=== PATIENT | female | born 1950 | race Caucasian/White ===

== ENCOUNTER 2019-08-18 18:54 | Inpatient (IN) | payer OTHER ==
[~2019-08-18] VITALS: Ht 170.2 cm; Wt 104.5 kg
[2019-08-18 19:19] VITALS: Ht 170.2 cm; Wt 104.5 kg
[2019-08-18 22:08] LABS: BASOPHIL % 0.6 % (0-2); PLATELET COUNT 270 x10^3mcL (130-400)
[2019-08-18 22:09] LABS: CALCIUM 9.6 mg/dL (8.5-10.1); CREATININE SERUM 1.2 mg/dL (0.6-1.0); RED CELL DISTRIBUTION WIDTH 15.3 % (11.5-14.5)
[2019-08-18 22:14] LABS: microscopic required? YES; urine erythrocyte 3+ (NEGATIVE)
[2019-08-18 22:14] LABS: ALBUMIN 3.5 g/dL (3.4-5.0); BILIRUBIN TOTAL 0.7 mg/dL (0.20-1.00); TOTAL PROTEIN, SERUM 7.9 g/dL (6.4-8.2)
[2019-08-19] MEDS ORDERED: LYRICA75 M1 PO (00:05)
[2019-08-19] MEDS ORDERED: PANTOPRAZOLE SO40 M1 PO (00:05)
[2019-08-19] MEDS ORDERED: DULOXETINE HYDR60 MG PO (00:05)
[2019-08-19] MEDS ORDERED: SIMVASTATIN40 M1 PO (00:05)
[2019-08-19] MEDS ORDERED: TRAZODONE50 M1 PO (00:05)
[2019-08-19] MEDS ORDERED: ULTRAM50 MG PO (00:06)
[2019-08-19] MEDS ORDERED: NOR10 PO (00:06)
[2019-08-19] MEDS ORDERED: ACETAMIN-CODE12.5 ML PO (00:07)
[2019-08-19] MEDS ORDERED: IMITREX100 MG PO (00:08)
[2019-08-19] MEDS ORDERED: CLONAZEPAM1 MG PO (00:08)
[2019-08-19 00:09] LABS: MAGNESIUM 1.8 mg/dL (1.8-2.4); PHOSPHOROUS 3.7 mg/dL (2.5-4.9)
[2019-08-19 00:15] LABS: CHOLESTEROL/HDL RATIO 7.5
[2019-08-19 00:57] VITALS: BP 140/79
[2019-08-19 02:07] LABS: FREE T4 1.2 ng/dL (0.76-1.46); FREE THYROXINE INDEX 2.6 ug/dL (1.4-4.5); T4(THYROXINE) 9.1 ug/dL (4.7-13.3)
[2019-08-19 03:46] LABS: T3 TOTAL 0.97 ng/mL
[2019-08-19 05:42] LABS: AMPHETAMINE QUAL UR NONE DETECTED (See below)
[2019-08-19 05:52] VITALS: BP 128/62
[2019-08-19 06:35] LABS: BASOPHIL % 0.9 % (0-2); PLATELET COUNT 257 x10^3mcL (130-400)
[2019-08-19 06:45] LABS: BILIRUBIN TOTAL 0.57 mg/dL (0.20-1.00); CARBON DIOXIDE 22.2 mmol/L (21-32); CREATININE SERUM 1.1 mg/dL (0.6-1.0); MAGNESIUM 1.8 mg/dL (1.8-2.4); PHOSPHOROUS 3.7 mg/dL (2.5-4.9); POTASSIUM SERUM 3.9 mmol/L (3.5-5.1); TOTAL PROTEIN, SERUM 7.4 g/dL (6.4-8.2)
[2019-08-19 06:51] LABS: ALBUMIN 3.1 g/dL (3.4-5.0)
[2019-08-19 08:58] VITALS: BP 108/54
[2019-08-19 12:44] VITALS: BP 143/66
[2019-08-19 17:00] VITALS: BP 126/51
[2019-08-19 21:07] VITALS: BP 141/76
[2019-08-20 05:39] VITALS: BP 116/52
[2019-08-20 07:28] LABS: BASOPHIL % 0.7 % (0-2); PLATELET COUNT 251 x10^3mcL (130-400)
[2019-08-20 07:59] LABS: BILIRUBIN TOTAL 0.6 mg/dL (0.20-1.00); CALCIUM 8.5 mg/dL (8.5-10.1); CARBON DIOXIDE 25.2 mmol/L (21-32); MAGNESIUM 1.7 mg/dL (1.8-2.4); PHOSPHOROUS 3.6 mg/dL (2.5-4.9); POTASSIUM SERUM 3.8 mmol/L (3.5-5.1); TOTAL PROTEIN, SERUM 6.8 g/dL (6.4-8.2)
[2019-08-20 08:12] LABS: ALBUMIN 2.8 g/dL (3.4-5.0)
[2019-08-20 08:30] VITALS: BP 127/64
[2019-08-20 12:01] VITALS: BP 141/86
[2019-08-20 16:32] VITALS: BP 150/80
[2019-08-20 21:28] VITALS: BP 134/71
[2019-08-21 05:31] VITALS: BP 132/58
[2019-08-21 07:02] LABS: BASOPHIL % 0.6 % (0-2); PLATELET COUNT 273 x10^3mcL (130-400)
[2019-08-21 07:19] LABS: RED CELL DISTRIBUTION WIDTH 14.7 % (11.5-14.5)
[2019-08-21 07:29] LABS: CALCIUM 9.4 mg/dL (8.5-10.1); CARBON DIOXIDE 22.3 mmol/L (21-32); CHLORIDE SERUM 102 mmol/L (98-107); CREATININE SERUM 0.8 mg/dL (0.6-1.0); GFR1 > 60 mL/min; GLUCOSE SERUM 78 mg/dL (74-106); POTASSIUM SERUM 3.6 mmol/L (3.5-5.1); SODIUM SERUM 136 mmol/L (136-145)
[2019-08-21 08:42] VITALS: BP 140/60
[2019-08-21 11:55] VITALS: BP 134/62
== END 2019-08-21 17:55 | DRG 280 ==
LOC: ED 18:54 → DU 23:18
PROVIDERS: Emergency Medicine; Internal Medicine; ADMIT Internal Medicine
DX: I21.A1 Myocardial infarction type 2 (principal); N17.0 Acute kidney failure with tubular necrosis; N39.0 Urinary tract infection, site not specified; M62.82 Rhabdomyolysis; Z68.1 Body mass index [BMI] 19.9 or less, adult; R31.9 Hematuria, unspecified; E86.0 Dehydration; R29.6 Repeated falls; G62.9 Polyneuropathy, unspecified; M47.9 Spondylosis, unspecified; K21.9 Gastro-esophageal reflux disease without esophagitis; I35.0 Nonrheumatic aortic (valve) stenosis; I10 Essential (primary) hypertension; F32.9 Major depressive disorder, single episode, unspecified; F41.8 Other specified anxiety disorders; E78.5 Hyperlipidemia, unspecified; Z79.82 Long term (current) use of aspirin
CPT/HCPCS: 83880; 84439; 90658; 97116-GP; 97530-GP; G0378; G0480; J0696; J7030; Q0092

== ENCOUNTER 2020-04-04 16:31 | Inpatient (IN) | payer OTHER ==
[~2020-04-04] VITALS: Ht 170.2 cm; Wt 82.6 kg
[~2020-04-04 16:31] MED LIST: ACETAMIN-CODE12.5 ML PO; CLONAZEPAM1 MG PO; DULOXETINE HYDR60 MG PO; IMITREX100 MG PO; LYRICA75 M1 PO; NOR10 PO; PANTOPRAZOLE SO40 M1 PO; SIMVASTATIN40 M1 PO; TRAZODONE50 M1 PO; ULTRAM50 MG PO
[2020-04-04 16:50] VITALS: Ht 170.2 cm; Wt 82.6 kg
--- NOTE | 2020-04-04 17:30 | NUR ---
REC'D A 70/F IN RM 9 BIBA FROM [facility] WITH C/O HYPOTENSION X 1 DAY. ADMITTED TO [facility] FOR CDIFFF. PER MEDIC, PT IS USUALLY ALTERED HOWEVER, MORE ALTERED TODAY. PT CONTINUES TO YELL " YOU'RE TRYING TO KILL ME" PT ALERT AND ORIENTED TO NAME, AND , RESP EU, BANDAGE NOTED TO SACRUM. PT IN NO ACUTE DISTRESS.
[2020-04-04 17:47] LABS: PLATELET COUNT 345 x10^3mcL (130-400)
[2020-04-04 17:49] LABS: RED CELL DISTRIBUTION WIDTH 20.8 % (11.5-14.5)
[2020-04-04 18:08] LABS: microscopic required? YES; urine erythrocyte 3+ (NEGATIVE)
--- NOTE | 2020-04-04 18:29 | NUR ---
BP: 90/45 AFTER 1 L NS.
[2020-04-04 18:39] LABS: LACTIC DEHYDROGENASE (LDH) 10 U/L (100-190)
[2020-04-04] MEDS ORDERED: ACIDOPHILUS1 EAC2 (18:41)
[2020-04-04] MEDS ORDERED: DULCOLAX10 M1 (18:42)
[2020-04-04] MEDS ORDERED: VITAMIN C500 M6 (18:42)
[2020-04-04] MEDS ORDERED: FAMOTIDINE20 M1 (18:43)
[2020-04-04] MEDS ORDERED: FERROUSAL325 MG (18:43)
[2020-04-04] MEDS ORDERED: FLEET ENEMA135 ML (18:43)
[2020-04-04] MEDS ORDERED: PROA (18:44)
[2020-04-04] MEDS ORDERED: GOOD NEIGH1200 MG/15 (18:44)
[2020-04-04] MEDS ORDERED: NORCO1 TA2 (18:44)
[2020-04-04] MEDS ORDERED: KLOR-CON M1010 MEQ (18:45)
[2020-04-04] MEDS ORDERED: SIMVASTATIN5 M2 (18:45)
[2020-04-04] MEDS ORDERED: VIMPAT100 M1 (18:45)
[2020-04-04] MEDS ORDERED: ZOF4 (18:46)
[2020-04-04] MEDS ORDERED: ZOL100 (18:46)
[2020-04-04] MEDS ORDERED: VANCOMYCIN HYD125 MG (18:47)
[2020-04-04 18:51] LABS: AMPHETAMINE QUAL UR NONE DETECTED (See below)
[2020-04-04 19:01] LABS: C REACTIVE PROTEIN 5.5 mg/dL (<=0.9); CHOLESTEROL 171 mg/dL (<200); LIPASE 71 IU/L (73-393); MAGNESIUM 1.6 mg/dL (1.8-2.4)
--- NOTE | 2020-04-04 19:06 | NUR ---
INITIATED ROCEPHIN @ 100ML/HR. PLEASE SEE EMAR.
--- NOTE | 2020-04-04 19:07 | NUR ---
3L NS BOLUS COMPLETED. BP: 95/43 (57)
[2020-04-04 19:16] LABS: BAND NEUTROPHIL 1 % (0-10); METAMYELOCTE 3 % (0-2); MONOCYTE 9 % (0-7); SEGMENTED NEUTROPHILS 62 % (37-75)
[2020-04-04 19:18] LABS: PLATELET MORPHOLOGY LARGE PLATELET SEEN; rbc morphology (normal/abnorm) ABNORMAL (NORMAL)
--- NOTE | 2020-04-04 19:18 | NUR ---
RECEIVED REPORT FROM JESUS MANUEL BALLESTEROS. PT RESTING ON GURNEY IN NAD. IV RUNNING WITH NO COMPLICATIONS. CM AND [address]. PT SLEEPING BUT EASILY AROUSABLE. WILL CONTINUE TO MONITOR.
[2020-04-04 19:29] LABS: CALCIUM 8.4 mg/dL (8.5-10.1); CARBON DIOXIDE 20.3 mmol/L (21-32); CHLORIDE SERUM 95 mmol/L (98-107); CREATININE SERUM 2.3 mg/dL (0.6-1.0); GFR1 22 mL/min; GLUCOSE SERUM 83 mg/dL (74-106); POTASSIUM SERUM 3.6 mmol/L (3.5-5.1); SODIUM SERUM 132 mmol/L (136-145)
[2020-04-04 19:34] LABS: ALT/SGPT 34 U/L (14-59); AST/SGOT 155 U/L (15-37); BILIRUBIN TOTAL 2.5 mg/dL (0.20-1.00); TOTAL PROTEIN, SERUM 6.2 g/dL (6.4-8.2)
--- NOTE | 2020-04-04 19:36 | NUR ---
PT TAKEN TO CT VIA ROCTAVIO.
[2020-04-04 19:37] LABS: ALBUMIN 1.9 g/dL (3.4-5.0); HDL CHOLESTEROL 4 mg/dL (40-60); T4(THYROXINE) 1.3 ug/dL (4.7-13.3)
--- NOTE | 2020-04-04 20:19 | NUR ---
PT RESTING ON GURNEY IN NAD. PT ABLE TO STATE NAME, , AND ABLE TO STATE SHES AT [facility]. PT UNABLE TO STATE SITUATION AND STATES "[id number]" WHEN ASKED WHAT YEAR IT IS. PT RESTING IN POSITION OF COMFORT. LIGHTS TURNED OFF FOR COMFORT. ATTEMPTED TO REPOSITION PT AND PATIENT RAISED VOICE AND STATES "NO, NO, NO". CM AND [address] WILL CONTINUE TO MONITOR.
--- NOTE | 2020-04-04 21:02 | NUR ---
PT NOTED HAVING RUN OF VTACH ON MONITOR. MD MCLEOD CALLED AND MADE AWARE. PER MD TIRADO REPEAT EKG AT THIS TIME. PT DENIES ANY CHEST PAIN AND IS SPEAKING CLEARLY. PT BREATHING EVEN AND UNLABORED AND IS NAD. REPEAT EKG COMPLETED BY MYSELF.
--- NOTE | 2020-04-04 21:11 | NUR ---
MD MCLEOD MADE AWARE OF EKG RESULTS. PER CONTINUE CM AT THIS. PT REMAINS IN CM AND [address] PT RESTING IN NAD. WILL CONTINUE TO MONITOR.
[2020-04-04 21:13] LABS: ALKALINE PHOSPHATASE 1486 U/L (46-116)
--- NOTE | 2020-04-04 21:16 | NUR ---
PT SON ISSA ANDERSON CALLED TO CHECK ON MOTHER. PER ISSA REQUESTING INFORMATION IF STATUS CHANGES ON PATIENT. PER ISSA BEST CONTACT NUMBER IS [phone].
--- NOTE | 2020-04-04 21:17 | NUR ---
LAB AT BEDSIDE.
--- NOTE | 2020-04-04 21:46 | NUR ---
MD MCLEOD AT BEDSIDE SPEAKING WITH PT ABOUT PLAN OF CARE. DUE TO PTS SYSTOLIC BP OF <90, WE WILL CONTINUE TO MONITOR PT IN ED. PER MD MCLEOD PTS SYSTOLICN BP MUST BE ABOVE 90 SYSTOLIC FOR 2 HOURS BEFORE SHE WILL ACCEPT THE PATIENT ON TELE FLOOR. IF BP DOES NOT STAY ABOVE 90 SYSTOLIC WE WILL CONSIDER ADMITTING PT TO ICU. NO FURTHER ORDERS AT THIS TIME. WILL CONTINUE TO MONITOR.
--- NOTE | 2020-04-04 22:11 | NUR ---
SPOKE TO MD MCLEOD REGARDING PTS BP STILL UNDER 90 SYSTOLIC. PER MD MCLEOD START LEVOPHED AT THIS TIME AND PT IS BEING CHANGED TO AN ICU ADMISSION. PER MD MCLEOD SHE WILL COME TO PLACE CENTRAL LINE FOR PT.
--- NOTE | 2020-04-04 22:15 | NUR ---
MD MANJARREZ PROVIDED WITH PTS SON ISSA CONTACT INFORMATION TO UPDATE PTS FAMILY OF PLAN OF CARE. MD MANJARREZ STATED SHE WOULD CONTACT PTS FAMILY MEMBER TO GIVE HIM AN UPDATE FOR PLAN OF CARE.
--- NOTE | 2020-04-04 22:30 | NUR ---
LEVOPHED INCREASED TO 4MCG/MIN FOR BP 84/43 MAP 52
[2020-04-04 22:34] LABS: CHOLESTEROL/HDL RATIO 21.1
--- NOTE | 2020-04-04 22:38 | NUR ---
LEVOPHED INCREASED TO 6MCG/MIN FOR AMAURY 91/48 MAP 56
--- NOTE | 2020-04-04 22:42 | NUR ---
LEVOPHED INCREASED TO 8 MCG/MIN FOR BP 96/48 MAP 63.
--- NOTE | 2020-04-04 22:46 | NUR ---
LEVOPHED INCREASED TO 10 MCG/MIN FOR BP 94/48 MAP 60
--- NOTE | 2020-04-04 22:51 | NUR ---
LEVOPHED REMAINS AT 10 MCG/MIN FOR BP 100/55 MAP 65. PT RESTING ON GURNEY IN NAD. PT BREATHING EVEN AND UNLABORED. FULL CM AND [address]PT SPEAKING CLEARLY. LIGHTS REMAIN OFF FOR PT COMFORT. WILL CONTINUE TO MONITOR.
--- NOTE | 2020-04-04 23:14 | NUR ---
LEVOPHED INCREASED TO 12 MCG/MIN FOR BP 102/48 MAP 62
--- NOTE | 2020-04-04 23:29 | NUR ---
PT NOTED HAVING RUNS OF VTACH ON CM. EKG COMPLETED. ATTEMPTED TO CALL RESIDENT. NO ANSWER. FULL CM REMAINS IN PLACE. PT DENIES ANY CHEST PAIN OR DIFFICULTY BREATHING. PT SPEAKING CLEARLY. PT REMAINS ON LEVOPHED 12 M MCG/MIN. BP 106/55 MAP 70.
--- NOTE | 2020-04-04 23:34 | NUR ---
MD MCLEOD AT BEDSIDE, PER MD CONTINUE TO MONITOR ON UTILITY PLANT OPERATIVE AT THIS TIME. MD AWARE OF PTS RUNS OF VTACH ON CM. NO FURTHER ORDERS AT THIS TIME.
--- NOTE | 2020-04-04 23:44 | NUR ---
PER MD MCLEOD KEEP PTS MAP ABOVE 60 WITH LEVOPHED TITRATION. PT CURRENT BP NOTED 93/52 MAP 64. PT LEVOPHED DRIP REMAINS AT 12 MCG/MIN. FULL CM AND [address] PT REMAINS EASILY AROUSABLE AND IS IN NAD.
--- NOTE | 2020-04-05 00:37 | NUR ---
CENTRAL LINE CONSENT SIGNED BY MYSELF, FAVIAN RUBIO, AND MD LEVI. CONSENT PLACED IN PT CHART.
--- NOTE | 2020-04-05 01:12 | NUR ---
MD CLEANING, MD AYALA, AND AGNES AT BEDSIDE FOR CENTRAL LINE PLACEMENT
--- NOTE | 2020-04-05 01:58 | NUR ---
CENTRAL LINE PLACED AT THIS TIME AND SECURED. AWAITING PLACEMENT VERIFICATION. PT RESTING ON GURNEY IN NAD. PT APPEARS TO BE SLEEPING BUT IS EASILY AROUSABLE. FULL CM AND [address] PT BREATHING EVEN AND UNLABORED. WILL CONTINUE TO MONITOR.
--- NOTE | 2020-04-05 02:12 | NUR ---
LEVOPHED TITRATED UP TO 14 MCG/MIN PER PROTOCOL
--- NOTE | 2020-04-05 02:20 | NUR ---
XRAY AT BEDSIDE FOR CENTRAL LINE VERIFICATION.
--- NOTE | 2020-04-05 02:52 | NUR ---
INCREASED LEVOPHED TO 16MCG/MIN DUE TO BP 88/45 WITH MAP 59
--- NOTE | 2020-04-05 02:54 | NUR ---
PT IS SLEEPING IN POSITION OF COMFORT,NO ACUTE DSITRESS NOTED. REMAINS ON FULL INSPECTOR SALVAGE AND IN VIEW FROM NURSES STATION.
--- NOTE | 2020-04-05 03:00 | NUR ---
LEVOPHED MAINTAINED AT 16 MCG/MIN FOR BP 94/54 MAP 63.
--- NOTE | 2020-04-05 03:09 | NUR ---
LEVOPHED MAINTAINED AT 16 MCG/MIN. PTS BP NOTED 96/45 MAP 62. PT SLEEPING IN POSITION OF COMFORT, BREATHING EVEN AND UNLABORED. WILL CONTINUE TO MONITOR.
--- NOTE | 2020-04-05 03:16 | NUR ---
PER MD MCLEOD CENTRAL LINE PLACEMENT HAS BEEN VERIFIED AND CENTRAL LINE IS OKAY TO USE AT THIS TIME.
--- NOTE | 2020-04-05 03:20 | NUR ---
LEVOPHED SWITCHED TO CENTRAL LINE BUT REMAINS AT 16 MCG/MIN. CENTRAL LINE FLUSHES WITH NO COMPLICATIONS, +BLOOD RETURN NOTED. CM AND [address] WILL CONTINUE TO MONITOR.
--- NOTE | 2020-04-05 04:18 | NUR ---
PT LEVOPHED INCREASED TO 18 MCG/MIN FOR BP 89/36 MAP 54.
--- NOTE | 2020-04-05 04:24 | NUR ---
PT LEVOPHED INCREASED TO 20 MCG/MIN FOR BP 95/42 MAP 56.
--- NOTE | 2020-04-05 04:30 | NUR ---
LEVOPHED REMAINS AT 20 MC/MIN TO RIGHT CENTRAL LINE. PT SLEEPING ON GURNEY IN NAD. PT BREATHING EVEN AND UNLABORED. LIGHTS REMAIN OFF FOR PT COMFORT. FULL CM AND [address] ABLE TO VISUALIZE PT FROM NURSING STATION. WILL CONTINUE TO MONITOR.
--- NOTE | 2020-04-05 05:04 | NUR ---
LEVOPHED INCREASED TO 22 MCG/MIN FOR BP 94/38 MAP 57
--- NOTE | 2020-04-05 05:11 | NUR ---
LEVOPHED MAINTAINED AT 22 MCG/MIN FOR BP 94/40 MAP 64
--- NOTE | 2020-04-05 06:05 | NUR ---
PT SLEEPING ON GURNEY IN NAD. PT EASILY AROUSABLE. PT BREATHING EVEN AND UNLABORED. FULL CM AND [address] LEVOPHED MAINTAINED AT 22 MCG/MIN FOR BP 100/41 MAP 60. LIGHTS REMAIN OFF FOR PT COMFORT AND PT REMAINS IN [place] POSITION. WILL CONTINUE TO MONITOR.
--- NOTE | 2020-04-05 06:33 | NUR ---
LEVOPHED INCREASED TO 24 MCG/MIN FOR BP 96/47 MAP 58.
--- NOTE | 2020-04-05 06:41 | NUR ---
LEVOPHED REMAINS AT 24 MCG/MIN FOR BP 106/51 MAP 61
--- NOTE | 2020-04-05 07:04 | NUR ---
LEVOPHED INCREASED TO 26 MCG/MIN FOR BP 97/38 MAP 58
--- NOTE | 2020-04-05 07:13 | NUR ---
LEVOPHED REMAINS AT 26 MCG/MIN FOR BP 94/50 MAP 60
--- NOTE | 2020-04-05 07:29 | NUR ---
RECIEVED REPORT FROM EVELYN BALLESTEROS. WILL ASSUME FURTHER CARE OF PT AT THIS TIME. PT NOTED SLEEPING IN ER [facility] AT THIS TIME. VSS, NO AD NOTED. WILL CONTINUE TO MONITOR. PT IN CLOSE VIEW OF NURSES STATION, SIDE RAILS UP X2 FOR SAFETY.
--- NOTE | 2020-04-05 07:31 | NUR ---
REPORT GIVEN TO YELITZA BALLESTEROS, YELITZA RN TO ASSUME CARE OF PT AT THIS TIME.
--- NOTE | 2020-04-05 08:20 | NUR ---
PT NOTED PULLING IV FROM R FOREARM AT THIS TIME.
--- NOTE | 2020-04-05 08:33 | NUR ---
NEW IV ESTABLISHED TO L WRSIT 20G, FLUSHED WITH 10CC SALINE. PT AWAKE AT THIS TIME, VSS AT THIS TIME, NO AD NOTED. WILL CONTINUE TO MONITOR.
[2020-04-05 08:38] LABS: PLATELET COUNT 342 x10^3mcL (130-400)
--- NOTE | 2020-04-05 09:20 | NUR ---
PT AWAKE AT THIS TIME AND REPORTS "IM OK", PROVIDED WARM BLANKET TO PT AT THIS TIME. VSS AT THIS TIME, NO AD NOTED. WILL CONTINUE TO MONITOR.
--- NOTE | 2020-04-05 09:28 | NUR ---
ULTRASOUND AT BEDSIDE FOR ULTRASOUND OF KIDNEYS AT THIS TIME, NO AD NOTED. WILL CONTINUE TO MONITOR.
--- NOTE | 2020-04-05 09:28 | NUR ---
500C DARK RED URINE NOTED TO PIERCE BAG AT THIS TIME. NO AD NOTED. WILL CONTINUE TO MONITOR.
--- NOTE | 2020-04-05 10:03 | NUR ---
CURRENT BP 90/43(59). LEVOPHED 26MCG/MIN AT THIS TIME. WILL TITRATE LEVOPHED 28MCG/MIN AT THIS TIME. NO AD NOTED. WILL CONTINUE TO MONITOR.
--- NOTE | 2020-04-05 10:15 | NUR ---
PT PASSED RED JELLY LOOSE STOOL AT THIS TIME. PAGED RESIDENT PHONE AND SPOKE WITH RESIDENT MD ESPINOZA, PER MD ESPINOZA "I WILL ORDER ONE UNIT OF PACKED RBC". AWAITING FURTHER ORDERS. WILL CONTINUE TO MONITOR.
[2020-04-05 10:18] LABS: CALCIUM 7.9 mg/dL (8.5-10.1); CARBON DIOXIDE 15.4 mmol/L (21-32); CREATININE SERUM 2.2 mg/dL (0.6-1.0); MAGNESIUM 1.6 mg/dL (1.8-2.4); PHOSPHOROUS 3.3 mg/dL (2.5-4.9)
--- NOTE | 2020-04-05 10:47 | NUR ---
CHANGED PT SOILED BEDDING AT THIS TIME WIHT ASSISTANCE OF JOSETTE BALLESTEROS AND CRAY FISHING HAND MARCY. LARGE WOUND NOTED TO COCCYX, DISCHARGE NOTED, PHOTOS TAKEN AND KEPT IN CHART. WILL NOTIFY MD. NO AD NOT AT THIS ITME, WILL CONTINUE TO MONITOR.
--- NOTE | 2020-04-05 11:02 | NUR ---
SPOKE WITH PHARMACIST GILBERTO IN REGARDS TO ACTEAMINOPHEN ORDER AND PTS ALLERGY, PER GILBERTO "IM CONTACTING THE RESIDENT BECAUSE I DO NOT FEEL COMFORTABLE GIVING DUE TO PTS ALLERGY". WILL CONTINUE TO MONITOR.
--- NOTE | 2020-04-05 11:07 | NUR ---
CONTACTED [facility] FOR ETA OF BLOOD. SPOKE WITH PEDIATRIC ALLERGIST "NICHOLAS" AND PER NICHOLAS "BLOOD WILL BE READY IN ONE HOUR". WILL CONTINUE TO MONITOR.
--- NOTE | 2020-04-05 11:10 | NUR ---
CURRENT BP 79/49 (59), LEVOPHED RUNNING 28MCG/MIN. WILL TITRATE LEVOPHED PER PROTOCOL. WILL CONTINUE TO MONITOR.
--- NOTE | 2020-04-05 11:11 | NUR ---
LEVOPHED NOW 30MCG/MIN. NO AD NOTED AT THIS TIME. WILL CONTINUE TO MONITOR.
--- NOTE | 2020-04-05 11:27 | NUR ---
SPOKE WITH RESIDENT MD MADDOX IN REGARDS TO PTS BP. PER RESIDENT MD MADDOX "I WILL ORDER ANOTHER PRESSOR FOR HER". AWAITING FURTHER ORDERS. WILL CONTINUE TO MONITOR.
--- NOTE | 2020-04-05 11:28 | NUR ---
NOTIFIED RESIDENT MD HIGGINBOTHAM IN REGARDS TO PTS WOUND ON COCCYX. AWAITING FURTHER ORDERS. WILL CONTINUE TO MONITOR.
--- NOTE | 2020-04-05 12:11 | NUR ---
PHENYLEPHRINE STARTED AT THIS TIME PER PROTOCOL 50MCG/MIN. NO AD NOTED. WILL CONTINUE TO MONITOR.
--- NOTE | 2020-04-05 12:13 | NUR ---
SPOKE WITH SCREENER PERFUMER IN BLOOD BANK FOR STATUS UPDATE ON BLOOD, PER SCREENER PERFUMER "GIVE ME 5 MINUTES". WILL CONTINUE TO MONITOR.
--- NOTE | 2020-04-05 12:23 | NUR ---
PT NOTED SLEEPING IN POSITION OF COMFORT IN ER [facility] AT THIS TIME, NO AD NOTED. WILL CONTINUE TO MONITOR.
--- NOTE | 2020-04-05 13:00 | NUR ---
PRBC STARTED AT THIS TIME. VERIFIED WITH FAVIAN MOE. NO AD NOTED. WILL CONTINUE TO MONITOR.
--- NOTE | 2020-04-05 13:03 | NUR ---
JOSETTE DIRECTOR SPORTS AT BEDSIDE AT THIS TIME. WILL CONTINUE TO MONITOR.
[2020-04-05 13:08] LABS: BAND NEUTROPHIL 1 % (0-10); MONOCYTE 7 % (0-7); SEGMENTED NEUTROPHILS 71 % (37-75); rbc morphology (normal/abnorm) ABNORMAL (NORMAL)
--- NOTE | 2020-04-05 13:22 | NUR ---
ELECTROCARDIOGRAM IN PROGRESS AT THIS TIME. VSS AT THIS TIME, NO AD NOTED. WILL CONTINUE TO MONITOR.
--- NOTE | 2020-04-05 13:55 | NUR ---
PT NOTED RESTING IN POSITION OF COMFORT IN ER [facility] AT THIS TIME, RESP E/U, NO AD NOTED. WILL CONTINUE TO MONITOR.
--- NOTE | 2020-04-05 15:02 | NUR ---
PT NOTED RESTING IN POSITION OF COMFORT IN ER [facility] AT THIS TIME, NO AD NOTED. WILL CONTINUE TO MONITOR.
--- NOTE | 2020-04-05 15:16 | NUR ---
BLOOD TRANSFUSION COMPLETE AT THIS TIME. NO AD NOTED, VSS AT THIS TIME. WILL CONTINUE TO MONITOR.
--- NOTE | 2020-04-05 15:22 | NUR ---
SPOKE WITH RESIDENT MD GARCIA TO GIVE PTS SON STATUS UPDATE, PER MD RESIDENT "I WILL CALL THE SON FOR UPDATE". WILL CONTINUE TO MONITOR.
--- NOTE | 2020-04-05 16:16 | NUR ---
PT NOTED TACHYPNEIC AT THIS TIME, HOT TO TOUCH, RECTAL TEMP 101.8. BRIGHT RED BLOOOD NOTED TO VAGINA AND OR RECTUM AT THIS TIME. ASISTANCE WITH DYEING MACHINE BACK TENDERLissette VIDAL AND EMT BETH. WILL NOTIFY MD. NO AD NOTED AT THIS TIME. WILL CONTINUE TO MONITOR.
--- NOTE | 2020-04-05 16:17 | NUR ---
MD LEDESMA MADE AWARE OF BLOOD NOTED TO STOOL AND OR VAGINA AT THIS TIME. NO AD NOTED. WILL CONTINUE TO MONITOR.
--- NOTE | 2020-04-05 16:21 | NUR ---
SPOKE WITH RESIDENT МАРИНА IN REGARDS TO PTS NEW TEMP. DE RESIDENT KARRIE "WILL ORDER SOMETHING ON BOARD FOR HER". AWAITING FURTHER ORDERS. WILL CONTINUE TO MONITOR.
--- NOTE | 2020-04-05 16:22 | NUR ---
75CC OF DARK RED URINE NOTED TO PIERCE AT THIS TIME. RESIDENT MD MADDOX MADE AWARE. WILL CONTINUE TO MONITOR.
--- NOTE | 2020-04-05 16:29 | NUR ---
COOLING MEASURES APPLIED TO PT AT THIS TIME. NO AD NOTED, WILL CONTINUE TO MONITOR.
--- NOTE | 2020-04-05 16:32 | NUR ---
SPOKE WITH PHARMACIST MARISELA "I WILL APPROVE ONE TIME DOSE OF MOTRIN". AWAITING APPROVAL. WILL CONTINUE TO MONITOR.
--- NOTE | 2020-04-05 16:45 | NUR ---
SPOKE WITH PTS SON ISSA TO VERIFY ALLERGY TO TYLENOL PER SON ISSA "ITS QUESTIONABLE BUT HER CAREGIVER SAID NO". WILL CONTINUE TO MONITOR.
--- NOTE | 2020-04-05 17:03 | NUR ---
SPOKE WITH PHARMACIST NIKKI ANTONIO TO ADMIN ANOTHER LEVOPHED PER PROTOCOL. WILL CONTINUE TO MONITOR.
--- NOTE | 2020-04-05 18:03 | NUR ---
SPOKE WITH PHARMACIST DARRIN IN REGARDS TO ZOYSN "ETA 5MINUTES". WILL CONTINUE TO MONTIOR.
--- NOTE | 2020-04-05 18:14 | NUR ---
MEDICATED PT PER MD ORDERS, PLEASE SEE EMAR. PT NOTED RESTING IN ER GURNEY IN POSITION OF COMFORT, NO AD NOTED AT THIS TIME. WILL CONTINUE TO MONITOR.
--- NOTE | 2020-04-05 18:34 | NUR ---
CONTACTED PT SON "ISSA" TO CALIFRY WHY PT WAS AT [facility]. PER ISSA "IM NOT REALLY SURE WHY SHE WAS THERE OR FOR HOW LONG".
--- NOTE | 2020-04-05 19:14 | NUR ---
REPORT GIVEN TO ALEJANDRA BALLESTEROS. RN TO ASSUME CARE OF PT AT THIS TIME.
--- NOTE | 2020-04-05 19:24 | NUR ---
REPORT RECEIVED FROM YELITZA BALLESTEROS TO ASSUME PT CARE. PT IS LAYING IN SEMI AC'S AT THIS TIME ON HER L SIDE. PT IS AWAKE AND OPENS HER EYES TO VERBAL STIMULI BUT IS NOT MAKING SENSE AT THIS TIME. HEELS ELEVATED OFF THE BED AT THIS TIME. LEVOPHED RUNNING AT 30MCG/MIN AND NEOSYNEPHRINE RUNNING AT 50MCG/MIN. PT ABLE TO REPORT NAME AND BUT UNABLE TO RECALL ANY OTHER ANSWERS. PT IN VIEW OF THE NURSE'S STATION, REMAINS ON FULL CM.
--- NOTE | 2020-04-05 20:13 | NUR ---
CLEANED PT FOR INCONTINENCE OF STOOL AT THIS TIME. NO DRESSING NOTED TO LARGE OPEN PRESSURE ULCER ON PT COCCYX, COVERED WITH BOARDERED DRESSING AT THIS TIME. PT REPOSITIONED ONTO BACK. ASHA BLOOD NOTED DRAINING FROM PIERCE, PER DAY SHIFT RN NOTES, RESIDENT AWARE OF PT CONDITION.
--- NOTE | 2020-04-05 20:25 | NUR ---
CENTRAL LINE NOTED TO ONLY BE COVERED BY GUAZE AND TEGADERM. CENTRAL LINE DRESSING CHANGE PERFORMED USING STERILE PROCEDURE AND BIOPATCH REPLACED. PT SEEMS AGITATED AT THIS TIME, NOT MAKING SENSE AND MOVING AROUND FREQUENTLY.
--- NOTE | 2020-04-05 20:58 | NUR ---
TITRATED LEVOPHED DOWN TO 28MCG/MIN FOR BP OF 154/97 (108).
--- NOTE | 2020-04-05 21:11 | NUR ---
TITRATED LEVOPHED DOWN TO 26MCG/MIN FOR BP 150/74 (100)
--- NOTE | 2020-04-05 21:17 | NUR ---
TITRATED LEVOPHED DOWN TO 24MCG/MIN FOR BP 148/76 (100)
[2020-04-05 23:08] LABS: BASOPHIL % 0.5 % (0-2); PLATELET COUNT 300 x10^3mcL (130-400); RED CELL DISTRIBUTION WIDTH 19.4 % (11.5-14.5)
--- NOTE | 2020-04-05 23:14 | NUR ---
PT RESTING WITH EYES CLOSED AT THIS TIME, RESPS EVEN AND UNLABORED, NO ACUTE DISTRESS NOTED.
--- NOTE | 2020-04-05 23:40 | NUR ---
LEVOPHED TITRATED DOWN TO 22 MCG/MIN FOR BP 149/84 MAP 103. PT RESTING ON GURNEY WITH EYES CLOSED IN NAD. PT BREATHING EVEN AND UNLABORED. FULL CM AND [address] WILL CONTINUE TO MONITOR.
--- NOTE | 2020-04-05 23:45 | NUR ---
LEVOPHED REMAINS AT 22 MCG/MIN FOR BP 130/76 MAP 94.
--- NOTE | 2020-04-06 00:04 | NUR ---
LEVOPHED TITRATED DOWN TO 20 MCG/MIN FOR BP OF 164/83 MAP 108
--- NOTE | 2020-04-06 01:49 | NUR ---
PT RESTING IN A POSITION OF COMFORT, WAKES TO VERBAL AND TACTILE STIMULI. PT RESP EVEN AND UNLABORED, NO ACUTE DISTRESS NOTED.
--- NOTE | 2020-04-06 02:20 | NUR ---
PT EXPERIENCED AN EPISODE OF INCONTINENCE OF LOOSE STOOL, BLOOD CLOTS PRESENT IN STOOL. WHILE CLEANING PT, PT EXPERIENCED INCONTINENCE OF BLOODY URINE AROUND THE PIERCE CATHETER, PT CATHETER NOTED TO BE CLOGGED AT THIS TIME WITH A BLOOD CLOT. PIERCE REMOVED AND REPLACED WITH A 3-WAY PIERCE CATHETER. PT DRAINED APPROXIMATELY 300ML BLOODY URINE WITH CLOTS. SPOKE WITH RESIDENTNIKKI TO START CONTINUOUS BLADDER IRRIGATION AT THIS TIME. PT REPOSITIONED ONTO R SIDE.
--- NOTE | 2020-04-06 02:40 | NUR ---
LARGE CLOT PASSED FROM WHAT APPEARS TO BE THE URETHRA. PT CLEANED AT THIS TIME, REPOSITIONED IN BED. DR BLACKWOOD CONTACTED TO COME ASSESS THE PATIENT. IRRIGATION STOPPED AT THIS TIME.
--- NOTE | 2020-04-06 02:50 | NUR ---
BLADDER IRRIGATION STARTED AT THIS TIME, CLOTS NOTED IN URINE COLLECTION BAG. PT APPEARS UNCOMFORTABLE, MOVING FREQUENTLY AND YELLING. MANUAL IRRIGATION PERFORMED DUE TO SLOW DRAINAGE, DID NOT HELP WITH DRAINAGE. DR BLACKWOOD AT BEDSIDE STATES TO CONTINUE IRRIGATING THE BLADDER AND THE DAY TEAM WILL ORDER A CT TO FIND THE SOURCE OF THE BLEEDING. IF PT DOES NOT TOLERATE IRRIGATION, STOP.
--- NOTE | 2020-04-06 03:20 | NUR ---
URINE APPEARS TO BE DRAINING OUT AROUND INDWELLING PIERCE. STOPPED IRRIGATION AT THIS TIME.
--- NOTE | 2020-04-06 03:40 | NUR ---
LARGE CLOT PASSED FROM WHAT APPEARS TO BE FROM THE URETHRA. DR BLACKWOOD CONTACTED TO COME ASSESS THE PATIENT, REPORTS HE WILL BE TO THE DEPARTMENT SOON.
--- NOTE | 2020-04-06 04:06 | NUR ---
LEVOPHED DECREASED TO 18MCG/MIN AT THIS TIME FOR BP 158/83 MAP 114
--- NOTE | 2020-04-06 04:38 | NUR ---
NEOSYNEPHRINE PAUSED AT THIS TIME FOR BP OF 180/89 MAP 112. LEVO INFUSING AT 18MCG/MIN
[2020-04-06 04:45] LABS: PLATELET COUNT 271 x10^3mcL (130-400)
[2020-04-06 04:50] LABS: BASOPHIL % 0 % (0-2)
[2020-04-06 04:58] LABS: CALCIUM 7.6 mg/dL (8.5-10.1); CARBON DIOXIDE 17.2 mmol/L (21-32); CREATININE SERUM 2.4 mg/dL (0.6-1.0); MAGNESIUM 1.3 mg/dL (1.8-2.4); PHOSPHOROUS 2.6 mg/dL (2.5-4.9); POTASSIUM SERUM 3.1 mmol/L (3.5-5.1)
--- NOTE | 2020-04-06 05:13 | NUR ---
LEVOPHED TITRATED TO 16MCG/MIN FOR BP OF 162/84 MAP 101
--- NOTE | 2020-04-06 05:51 | NUR ---
PT RESTING WITH EYES CLOSED, RESP EVEN AND UNLABORED, NO ACUTE DISTRESS NOTED.
--- NOTE | 2020-04-06 06:28 | NUR ---
LEVOPHED DECREASED TO 14MCG/MIN FOR BP 154/76 MAP 102
--- NOTE | 2020-04-06 07:30 | NUR ---
ASSUMING CARE OF PT. AT THIS TIME. PT LYING COMFORTABLY IN POSITION OF COMFORT. PT IS AWAKE. SPEAKING OUT LOUD WHILE ALONE IN ROOM. PT RESPONSIVE WHEN SPOKEN TO. ORIENTED TO NAME ONLY. ABLE TO FOLLOW ALL COMMANDS. LEVOPHED @ 14MCG/MIN INFUSING INTO CENTRAL LINE R NECK. NS @ 70ML/HR. LUNGS CTA. CHEST RISE EVEN AND UNLABORED. NSR ON MONITOR. ABD SOFT. NON RIGID. WHEN ROLLED TO SIDE DRIED BLOOD NOTED ON NEHAL UNDER PT. NO ACTIVE BLEEDING NOTED. +PIERCE CATH WITH BLOODY URINE NOTED TO BE DRAINING FROM PIERCE CATH. DR. BLACKWOOD AWARE OF BLOODY URINE AND MULTIPLE CLOTS
--- NOTE | 2020-04-06 08:32 | NUR ---
PT SLEEPING. BREATHING EVEN UNLABORED. NO DISTRESS. CONTINUE TO MONITOR.
--- NOTE | 2020-04-06 09:34 | NUR ---
PT REMAINS SLEEPING AT THIS TIME. BREATHING EVEN UNLABORED. PT ROTATED TO R SIDE. PIERCE CONTINUES DRAINGNG BLOOD URINE APPROX 200ML DRAINAGE IN BAG.
--- NOTE | 2020-04-06 10:02 | NUR ---
LEVOPHED REDUCED TO 12MCG/MIN FROM 14MCG/MIN BP 144/81 (93)
--- NOTE | 2020-04-06 10:40 | NUR ---
DR. ABRAMS AT BEDSIDE.
--- NOTE | 2020-04-06 10:42 | NUR ---
LEVOPHED REDUCED TO 10MCG/MIN
--- NOTE | 2020-04-06 11:53 | NUR ---
ASSUMED CARE FROM AM RN REMAINS ON MULTIPLE IV DRIPS. MOVES SPONTANEOUSLY, AD DIANNA BUT RESTING / SLEEPING. REPOSITIONED TO RIGHT SIDE AND ELEVATED HEELS OFF BED. V/S NOTED AND NO CHANGE TO LEVOPHED WITH "STABLE" B/P.
--- NOTE | 2020-04-06 13:27 | NUR ---
CONTINUED MAG PER ORDER. HAD TO TEMPORARILY STOP NAHCO3 TO PROVIDE ANTIBIOTICS ORDERED. NO OPEN AVAILABLE IV PORTS . REPOSITIONED TO LEFT SIDE LYING. REMAIANS INCOMPREHENSIBLE VERBAL RESPONSE WITH SPONATEOUS LEG & FOOT MOVEMENTS.
--- NOTE | 2020-04-06 13:57 | NUR ---
SODIUM BICARB AND POTASSIUM REESTABLISHED VIA PUMP. ZOSYN INFUSION COMPLETED.
--- NOTE | 2020-04-06 14:17 | NUR ---
CARE AND COMFORT. PLACED ONTO RIGHT SIDE, CLEANED PT OF LOOSE STOOL AND BLOOD FROM PRIOR PIERCE CATH PROCEDURES. DRESSING REMAINS TO SACRAL AREA- NO OTHER WOUNDS NOTED. HEELS OFF BED., IV DRIPS INFUSING.
--- NOTE | 2020-04-06 15:29 | NUR ---
UROLOGIST PRESENT. PT ABLE TO RESPOND BUT NOT FULLY ORIENTED TO HER HX.
--- NOTE | 2020-04-06 15:51 | NUR ---
UROLOGIST UNABLE TO FULLY IRRAGATE CATHETER MANUALLY AFTER INSERTIONN OFR [address] PIERCE. NO PAIN AFTER PROCEDURE. REMAINS SUPINE MODIFIED FROM PRIOR RIGHT SIDE LYING POSITION.
--- NOTE | 2020-04-06 17:12 | NUR ---
CLEANED PT OF BLOOD AND STOOL. UNABLE TO TELL IF LARGE CLOTS ARE COMING FROM URETHRA OR PRIOR PIERCE PROCEDURE. BED LINEN CHANGED AND POSITIONED ONTO LEFT SIDE WITH CLEAN GOWN RESTARTED LEVOPHED IT RAN OUT RN AND EMT WERE PREPARING TO CLEAN PT AND CHANGE LINEN. B/P HAD DROPPED.
--- NOTE | 2020-04-06 17:51 | NUR ---
RN TO GO WITH PT TO CT.
--- NOTE | 2020-04-06 18:08 | NUR ---
RETURNED FROM CT SCAN. TOLD BY WEALTH MANAGEMENT CONSULTANT THAT ICU WILOL TAKE PT PRIOR TO SHIFT CHANGE.
--- NOTE | 2020-04-06 18:13 | NUR ---
LEVOPHED LOWERED TO 12 MCG/ MINUTE
[2020-04-06 18:57] LABS: CALCIUM 7.7 mg/dL (8.5-10.1); CARBON DIOXIDE 23.2 mmol/L (21-32); CREATININE SERUM 2.3 mg/dL (0.6-1.0); MAGNESIUM 2.2 mg/dL (1.8-2.4); POTASSIUM SERUM 3.9 mmol/L (3.5-5.1)
--- NOTE | 2020-04-06 19:21 | NUR ---
WAS ABLE TO CALL REPORT TO EULALIA IN ICU. EXPLAINED EXTENDED ED STAY- SURGERY TOMORROW FOR OLIGURIA AND BLOOD CLOTS. STABLE V/S WITH LEVOPHED AT 10 CG / MINUTE. LATE NOTES: DURING LAST LINEN CHANGE ALSO CHANGED DIRTY, SOILED DRESSING ON SACRAL DECUBITUS ULCER.
--- NOTE | 2020-04-06 19:50 | NUR ---
RECEIVED PT FROM ER VIA GURNEY ACCOMPANIED BY DIPAK RN AND LIZA EMT. PT TRANSFERRED TO ICU BED 7 WITH NO COMPLICATIONS. PT CONNECTED TO FULL LANE ATTENDANT, VITALS READING: HR 83, NIBP 103/50 MAP 60, RR 20, SPO2 99%. PT IS CONFUSED A/OX2, ORIENTED TO SELF/TIME. PT ABLE TO FOLLOW SIMPLE/COMMANDS/MAKE NEEDS KNOWN. RIJ CVC TLC INTACT/SECURED, DRESSING CDI. BREATHING IS E/U ON RA. SYMMETRICAL CHEST EXPANSION NOTED. S1/S2 HEART SOUNDS AUSCULTATED. CHEST WALL EQUAL AND SYMMETRICAL. LEVOPHED GTT INFUSING @ 10 MCG/MIN FOR BP SUPPORT. LW IV INTACT/SECURED, SALINE LOCKED. NS INFUSING @ 70 ML/HR AND 1/2 NS WITH 1 AMP OF BICARB INFUSING @ 70 ML/HR. PT IS INCONTINENT. LARGE BLOODY CLOTS NOTED ON CHUCKS, PT CLEANED. BED IN LOW POSITION. CALL LIGHT IN REACH.
[2020-04-06 20:08] VITALS: BP 103/50
--- NOTE | 2020-04-06 20:15 | NUR ---
NIBP 120/61 MAP 83. LEVOPHED GTT TITRATED TO 8 MCG/MIN
--- NOTE | 2020-04-06 20:30 | NUR ---
NIBP 112/58 MAP 76. LEVOPHED GTT TITRATED TO 6 MCG/MIN
--- NOTE | 2020-04-06 21:15 | NUR ---
DR. MCLEOD AT BEDSIDE. UPDATED ON PT'S STATUS. MADE AWARE PT HAS NS INFUSING @ 70 ML/HR AND 1/2 NS WITH 1 AMP OF BICARB INFUSING @ 70 ML/HR. PER DR. MCLEOD, WILL DC ONE OF THEM. PER DR. MCLEOD, INFUSE BOTH UNITS OF PRBC'S.
--- NOTE | 2020-04-06 22:15 | NUR ---
PRBC INFUSION INITIATED AT THIS TIME. PRE-INFUSIONG VITALS: TEMP 97.8, HR 77, NIBP 96/34, RR 15, SPO2 97%. MADE AWARE TO NOTIFY IF SHE FEELS ANY ADVERSE REACTION, PT NODDED HEAD IN AGREEMENT. WILL CONT TO MONITOR.
[2020-04-06 23:04] VITALS: BP 107/51
--- NOTE | 2020-04-07 00:37 | NUR ---
PRBC INFUSION COMPLETED AT THIS TIME. POST INFUSION VITALS: TEMP 97.7, HR 79, NIBP 111/56, RR 19, SPO2 97%. NO ADVERSE REACTION NOTED. WILL CONT TO MONITOR.
--- NOTE | 2020-04-07 00:45 | NUR ---
NIBP 111/56 MAP 71. LEVOPHED GTT TITRATED TO 4 MCG/MIN
--- NOTE | 2020-04-07 01:00 | NUR ---
DR. MCLEOD MADE AWARE PRBC INFUSION IS COMPLETED. PER DR. MCLEOD, WILL ORDER REPEAT H/H BEFORE ADMINISTRATION OF SECOND PRBC.
[2020-04-07 03:08] VITALS: BP 99/53
[2020-04-07 04:04] LABS: BASOPHIL % 0.1 % (0-2); PLATELET COUNT 185 x10^3mcL (130-400)
[2020-04-07 04:06] LABS: RED CELL DISTRIBUTION WIDTH 20.1 % (11.5-14.5)
[2020-04-07 04:09] LABS: CALCIUM 7.2 mg/dL (8.5-10.1); CREATININE SERUM 2.3 mg/dL (0.6-1.0); MAGNESIUM 1.9 mg/dL (1.8-2.4); PHOSPHOROUS 2.7 mg/dL (2.5-4.9); POTASSIUM SERUM 3.2 mmol/L (3.5-5.1)
--- NOTE | 2020-04-07 04:15 | NUR ---
DR. GARRIDO MADE AWARE OF H/H RESULT OF .12/07. PER DR. GARRIDO, TRANSFUSE SECOND UNIT OF PRBC
--- NOTE | 2020-04-07 04:30 | NUR ---
DR. GARRIDO MADE AWARE OF POTASSIUM LEVEL 3.2. PER DR. GARRIDO, WILL INFORM DR. MCLEOD TO INPUT ORDER
--- NOTE | 2020-04-07 04:37 | NUR ---
2ND UNIT OF PRBC INITIATED AT THIS TIME, VERIFIED BY 2 RN'S. PRE-INFUSION VITALS READING: HR 83, NIBP 88/52, RR 21, SPO2 98%. WILL CONT TO MONITOR.
--- NOTE | 2020-04-07 05:35 | NUR ---
FULL BED BATH PROVIDED. GOWN, CHUCKS, AND LINENS CHANGED. PERICARE PROVIDED. EXTREMITIES OFFLOADED FOR PRESSURE RELIEF. NEW OPTIFOAM PLACED TO SACRAL AREA.
--- NOTE | 2020-04-07 06:45 | NUR ---
NIBP 116/60 MAP 76. LEVOPHED GTT TITRATED TO 2 MCG/MIN
--- NOTE | 2020-04-07 07:10 | NUR ---
REPORT GIVEN TO DONNIE BALLESTEROS FOR CONTINUITY OF CARE. ALL QUESTIONS/CONCERNS ADDRESSED. ENDORSING ALL CARE
[2020-04-07 08:45] VITALS: BP 93/51
--- NOTE | 2020-04-07 08:51 | NUR ---
PRBC TRANSFUSION COMPLETE, NO ADVERSE REACTIONS
--- NOTE | 2020-04-07 10:32 | NUR ---
MD COOLEY AT BEDSIDE UPDATED ON PATIENTS STATUS, PER MD D/C BICARB & START 40MEQ KCL
[2020-04-07 12:50] VITALS: BP 89/53
--- NOTE | 2020-04-07 13:12 | NUR ---
LEVOHED OFF AT THIS TIME BP 178/87
--- NOTE | 2020-04-07 13:30 | NUR ---
PT WENT TO OR AT THIS TIME ACCOMPANIED BY FAVIAN SCHULTZ AND 2 OTHER RNS, AWARE LEVPHED OFF AT THIS TIME
--- NOTE | 2020-04-07 13:42 | NUR ---
LATE ENTRY RESIDENT RAMOS AT BEDSIDE, UPDATED ON PT STATUS, URINE SHOWS ESBL AND MDRO PROTEUS
--- NOTE | 2020-04-07 14:23 | NUR ---
REPORT RECIEVED FROM MANOLO, CYSTOSCOPY DONE, POSTERIOR BLADDER SPECIMEN COLLECTED AND SENT TO PATHOGOLY, 3 WAY F/C PLACED, 200ML OF LR INFUSED, 0 BLOOD LOSS
--- NOTE | 2020-04-07 14:41 | NUR ---
SPOKE WITH DR HORNE REGARDING TRANSFUSION OF PRBC. H & H ORDERED AT THIS TIME. IF HGB 8.0 OR LESS, TRANSFUSE 2 UNITS PRBC'S. TUBING MACHINE TENDER ON UNIT AT THIS TIME AND [facility] H & H LAB. ENDORSED INFORMATION TO PRIMARY RN DONNIE.
--- NOTE | 2020-04-07 14:47 | NUR ---
PT BACK IN ROOM, BP LOW 80/53 LEVOPHED STARTED AT THIS TIME
[2020-04-07 14:51] LABS: BASOPHIL % 0.7 % (0-2); PLATELET COUNT 181 x10^3mcL (130-400)
[2020-04-07 14:58] LABS: RED CELL DISTRIBUTION WIDTH 21.1 % (11.5-14.5)
[2020-04-07 15:00] VITALS: BP 95/52
[2020-04-07 15:27] LABS: rbc morphology (normal/abnorm) ABNORMAL (NORMAL)
--- NOTE | 2020-04-07 15:35 | NUR ---
NO TRANSFUSION AT THIS TIME PER MD SONG TRASFUSE IF HEMOGLOBIN <8.0, H&H = 8.2/24,
--- NOTE | 2020-04-07 15:46 | NUR ---
Initial Nutrition Assessment: ICU1 MARCY DÍAZ 70F HR Dx: non Q acute MT, UTI PMHx: HTN, hyperlipidemia, depression, neuropathy, anxiety, migraines, GERD PSHx: Cholecystectomy Labs: (04/07) Na 131L, K 3.2L, BUN 20H, Cr 2.3H, Bilirubin 2.5H, AST 155H, ALk ph 1486H, LDL 121H, WBC 16.6H, H/H 7.3/22L Meds: Colace, Levophed, domi-syneprhine, sodium bicarbonate PRN meds: Dilaudid, Zosyn Diet: NPO for cystoscopy PO intake since admission: no entry Ht: 170.18cm/67in Wt: 83.2kg/183lbs BMI: 28.7 Bed scale: not accessible IBW: 61.36kg/135lbs %IBW: 135.6% ABW: 67kg UBW: unknown Age: 70 Food Allergies: unknown Edema: edema noted to BLE Last BM: none noted Skin: pressure ulcer noted to sacral area per skin assessment (04/06) Eric: 13 Per H and P (04/04), The history mainly based on the ER physician note. 70 y/o F brought in by ambulance from SNF for hypotension (BP 76/41) and confusion. On all of my questions she replied just "No". Pt was noted to be more confused than usual. For hypotension she received IV fluids and has been transferred to the hospital. Pt's hypotension deteriorated later with the BP 86/39>77/37>84/[address] Beckham placed central line for Levophed 4mg. Pt was admitted with dx: septic shock with hypotension, elevated troponin, vasomotor nephropathy, transaminitis, DVT RD Note (04/07) Pt was seen isolated, lying in bed during visit. Per pt's primary RN, pt was confused, and pt was NPO for surgery, but did not complain about being hungry. Additionally, RN reported pt had diarrhea. Problem with: N/V/D/C: diarrhea per RN Problems with: Chewing: Swallowing: RN did not observe d/t pt being NPO during shift Current appetite: Pt NPO Recent wt change: unknown %wt change: unknown Height: unknown Vitamin/Supplement use: unknown Special diet at home: unknown Physical activity: unknown Nutrition education given (specify specific nutrition education and handout given): not given at this time Food-drug interactions? Education given? n/a Estimated Nutritional Needs Based on adjusted body weight (67kg) Energy: 9175-9258 kcal/day (30-35 kcal/kg for septic shock and wound healing) Protein: 100-134 g/day (1.5-2 g/kg for septic shock and wound healing) Fluid: 7120-2948 mL/day (1 mL/kcal) Nutrition Diagnosis: 1. Increased energy and protein needs r/t critical illness and wound healing a/e/b pt has septic shock and pressure ulcer noted to sacral area per skin assessment on 04/06. 2. Predicted poor PO intake r/t altered mental status a/e/b RN reported pt being confused and not hungry despite being NPO for surgery. Intervention 1. Continue NPO as necessary 2. Recommend cardiac diet when pt is appropriate to receive nutrition 3. Recommend Markie BID for wound healing when pt is appropriate to receive nutrition Monitor/Evaluate Goal: Pt meets 75% of estimated needs Monitor: Diet implementation, Labs, GI function, Body weight, Skin integrity F/U in 2-3 days as high risk 04/09-
--- NOTE | 2020-04-07 16:20 | NUR ---
MD RACHEL YA, MD ALARCON ANSWERED, REPORTED LUIS TURCIOS FOR PATIENT, 1ST DEGREE HEART BLOCK, MD AWARE PT IS BACK ON LEVOPHED @ 3 MCG/MIN AND IS CURRENTLY NPO, AWAITING DIET ORDERS
--- NOTE | 2020-04-07 19:10 | NUR ---
RECEIVED REPORT FROM DONNIE BALLESTEROS. ASSUMING CARE. PT CONNECTED TO FULL REGULATORY ASSISTANT/CONTINOUS PULSE OXIMETRY. HOB ELEVATED 30 DEGREES. BED IN LOW POSITION. CALL LIGHT IN REACH. SEE NURSE SHIFT ASSESSMENT FOR FURTHER CARE
[2020-04-07 19:20] VITALS: BP 93/48
--- NOTE | 2020-04-07 21:02 | NUR ---
DR. HUSAIN MADE AWARE COVID RESULTS ARE NEGATIVE. PER DR. HUSAIN, OK TO DISCONTINUE DROPLET ISOLATION PRECAUTIONS.
[2020-04-07 23:09] VITALS: BP 101/52
--- NOTE | 2020-04-08 01:45 | NUR ---
NIBP 96/44 MAP 55. LEVOPHED GTT TITRATED TO 8 MCG/MIN
[2020-04-08 03:05] VITALS: BP 92/51
--- NOTE | 2020-04-08 04:30 | NUR ---
NIBP 87/44 MAP 55. LEVOPHED GTT TITRATED TO 10 MCG/MIN
[2020-04-08 05:57] LABS: BASOPHIL % 0.1 % (0-2); PLATELET COUNT 187 x10^3mcL (130-400)
[2020-04-08 05:59] LABS: RED CELL DISTRIBUTION WIDTH 22.1 % (11.5-14.5)
--- NOTE | 2020-04-08 06:00 | NUR ---
FULL BED BATH PROVIDED. GOWN, ROSLYN, LINENS CHANGED. PT HAD 1 BM THROUGHOUT SHIFT, PT CLEANED. PERICARE AND PIERCE CARE PROVIDED. EXTREMITIES OFFLOADED FOR PRESSURE RELIEF. HOB ELEVATED 30 DEGREES
[2020-04-08 06:08] LABS: CALCIUM 7.8 mg/dL (8.5-10.1); CARBON DIOXIDE 17.6 mmol/L (21-32); CREATININE SERUM 2.2 mg/dL (0.6-1.0); MAGNESIUM 2.1 mg/dL (1.8-2.4); PHOSPHOROUS 2.7 mg/dL (2.5-4.9); POTASSIUM SERUM 4.2 mmol/L (3.5-5.1)
--- NOTE | 2020-04-08 07:02 | NUR ---
NIBP 108/60 MAP 74. LEVOPHED GTT TITRATED TO 8 MCG/MIN
--- NOTE | 2020-04-08 07:15 | NUR ---
REPORT GIVEN TO AKILAH BALLESTEROS FOR CONTINUITY OF CARE. ALL QUESTIONS/CONCERNS ADDRESSED. ENDORSING ALL CARE
--- NOTE | 2020-04-08 07:51 | NUR ---
RECEIVED REPORT FROM PM NURSE, PT. AWAKE, ALERT, CURRENTLY ON LEVO 8MCG/MIN, NS 120 ML/H VSS, WILL RESUME CARE
[2020-04-08 07:55] VITALS: BP 99/55
--- NOTE | 2020-04-08 09:56 | NUR ---
levo titrated down to 7.5 mcg/min bp 110/78 MAP 72
[2020-04-08 12:12] VITALS: BP 93/62
--- NOTE | 2020-04-08 13:45 | NUR ---
URINE SAMPLE EXTRACTED FROM THE PIERCE PORT, SENT TO LAB FOR ANALI
[2020-04-08 15:09] LABS: CREATININE UR 74.2 mg/dL (0.60-1.80)
[2020-04-08 16:22] VITALS: BP 98/55
--- NOTE | 2020-04-08 20:28 | NUR ---
Received report from JOANA RN, PT IS CONFUSED AND SCREAMING OUT THET THEY ARE GOING TO KILL ME. i DIDN'T SIGNUP FOR THIS. FED PT A CUP OF JELLO . SHE TOOK TWO SPOONS OF THE BROOTHE AND REFUSED MORE. TURNEDM PT AND SHE HAD A LARGE STOOL. SPECIMEN COLLECTED FOR C-DIFF BECAUSE SHE Was admitted from [facility] with c-diff. pt states she has pain. a large optifoam drsg placed over the large wound on her buttock. It appears to be tunneling. wouind nurse to polo.
[2020-04-08 20:33] VITALS: BP 1176/67
[2020-04-08 23:34] VITALS: BP 107/60
[2020-04-09 04:01] VITALS: BP 91/54
[2020-04-09 06:28] LABS: BASOPHIL % 0.5 % (0-2); PLATELET COUNT 160 x10^3mcL (130-400)
[2020-04-09 06:29] LABS: CALCIUM 6.8 mg/dL (8.5-10.1); CARBON DIOXIDE 17.4 mmol/L (21-32); CREATININE SERUM 1.9 mg/dL (0.6-1.0)
[2020-04-09 06:39] LABS: RED CELL DISTRIBUTION WIDTH 22.2 % (11.5-14.5)
[2020-04-09 07:04] LABS: POTASSIUM SERUM 2.7 mmol/L (3.5-5.1)
--- NOTE | 2020-04-09 07:12 | NUR ---
LAB CALLED TO REPORT CRITICAL POTSAAIUM OF 2.3; PLACED A CALL TO DR. RAMOS TO INFORM PENDING HER RETURN CALL.
--- NOTE | 2020-04-09 07:30 | NUR ---
REPORT RECEIVED FROM NIGHT RN, WILL RESUME CARE
--- NOTE | 2020-04-09 07:43 | NUR ---
CALLED AND MADE DR. BIA HUSAIN AWARE PT'S H/H TRENDING DOWN 7.11/09, PER DR. HORNE'S STANDING ORDER, GIVING 2 UNITS BLOOD TRANSFUSION. HOWEVER, PT HAD 500ML NS BOLUSE YESTERDAY AND PT'S IV FLUID INFUSING AT 120ML/HR. PER AGENCY MANAGER'S REPORT, THERE IS NO BLOOD NOTED IN PT'S PIERCE. DR. BIA HUSAIN RECHKED PT'S CBC TO R/O HEMO DILUTE. WILL CONTINUE TO MONITOR.
[2020-04-09 08:17] VITALS: BP 95/62
[2020-04-09 08:54] LABS: rbc morphology (normal/abnorm) ABNORMAL (NORMAL)
[2020-04-09 08:55] LABS: burr cell (echinocyte) 1+
--- NOTE | 2020-04-09 09:12 | NUR ---
DR. BRADSHAW ASSESSED PT BEDSIDE. PT'S STATUS UPDATED. PER DR. BRADSHAW, GIVE KCL 80MEQ IV. MIDODRINE 5MG PO Q8H, REDUCE IVF NS FROM 120ML/HR TO 75 ML/HR. WILL CONTINUE TO MONITOR.
--- NOTE | 2020-04-09 09:58 | NUR ---
DR. HORNE ASSESSED PT BEDSIDE, PT'S CONDITION UPDATED. MADE DR. HORNE AWRE PT HAD 500ML BOLUS AND IVF INFUSING AT 120ML/HR, CBC RECHECKED IS OREDED BY DR. HUSAIN. PER DR. HORNE, GIVE 2 UNIT BLOOD TRANSFUSING.
[2020-04-09 11:47] LABS: BASOPHIL % 0.9 % (0-2); PLATELET COUNT 172 x10^3mcL (130-400)
[2020-04-09 12:00] VITALS: BP 79/48
[2020-04-09 12:06] LABS: RED CELL DISTRIBUTION WIDTH 21.9 % (11.5-14.5)
[2020-04-09 14:13] LABS: rbc morphology (normal/abnorm) ABNORMAL (NORMAL)
--- NOTE | 2020-04-09 16:02 | NUR ---
PT. TRANSFERED TO [facility] WITH ODILIA BALLESTEROS AND ALLYSSA CORCORAN, VSS, PT. ON CARDIA MONITOR, REPORT GIVEN TO RAN BALLESTEROS
[2020-04-09 17:53] VITALS: BP 100/65
--- NOTE | 2020-04-09 18:51 | NUR ---
RECEIVED PATIENT FROM ICU. ADITYA HAD K RIDERS TO BE GIVEN WELL A UNIT OF BLOOD. PROBLEMS WITH STARTING HIS IS NO IV MACHINES AND FOUND AND RAN THE REMAINDER OF ALMOST A FULL RIDER AND THEN STARTED THE OTHER IDNICATED. PATIENT IS FOR BLOOD BUT WAS APPARENTLY TO BE GIVNE EARLIER AND WAS ENDORSED TO STAFF ON ARRIVAL. HE LABS INDICATED SHE HS QUINTERO HD OF 7.9/24. SHE IS PALE AND HAS BEEN HAVING LOW BP. THE RESIDENT ARRIVED AND WANTED ANOTHER BP AND AT 108/66 AT THIS TIME. SHE HAS BEEN RECEIVING MIDRINE FOR THE BP AND SEEMS EFFETIVE. SHE HAS NOETD LOW POTASSIUM OF 2.7 AND HAS A BNP AT 1995. SHE HAS BEEN CONFUSED AND WITH WOUNDS TO THE COCCYX AND HAS TO HAVE A WOUND CONSULT PER REPORT AND HAS NOT YET RECIEVED. SHE IS NOTED TO HAVE A UIT AND HAS NEPHROLITHISAS AND RANL ATROPHY PER THE HISTORY. SHE IS ALSO HAS AORTIC STENOSIS AND DYLIPEMIA. PATIENT HAS ALLERGY VICODIN, DARVON AND TYLENOL AND COCONUT AND MORPHINE. PATIENT IS AT THIS TIME NOTED TO HAVE DIMINISHED BREATH SOUNDS AND WITH DISTENDED ABDOMEN AND NOTED ACITES PER CT. WILL ENDORSE THIS TO THE NEXT SHIFT.
[2020-04-09 18:52] LABS: BILIRUBIN TOTAL 2.7 mg/dL (0.20-1.00); CALCIUM 8.2 mg/dL (8.5-10.1); CARBON DIOXIDE 17.1 mmol/L (21-32); CREATININE SERUM 2.1 mg/dL (0.6-1.0); POTASSIUM SERUM 3.7 mmol/L (3.5-5.1)
[2020-04-09 18:53] LABS: ALBUMIN 1.7 g/dL (3.4-5.0)
[2020-04-09 21:52] LABS: PLATELET COUNT 210 x10^3mcL (130-400)
[2020-04-09 21:57] LABS: RED CELL DISTRIBUTION WIDTH 22.8 % (11.5-14.5)
[2020-04-09 22:10] LABS: BAND NEUTROPHIL 2 % (0-10); BASOPHIL 0 % (0-2); MONOCYTE 2 % (0-7); SEGMENTED NEUTROPHILS 68 % (37-75); rbc morphology (normal/abnorm) ABNORMAL (NORMAL)
[2020-04-09 22:11] LABS: PLATELET MORPHOLOGY PLATELETS NORMAL
--- NOTE | 2020-04-10 03:47 | NUR ---
@ 2000 A/A/O X 1.DENIES ANY DISCOMFORT NOR CP 2 THIS TIME.IVF NS STARTED ON HER RIGHT JUGULAR TL CL @ 75 ML/HR,INFUSING WELL.BILATERAL UPPER EXTREMITIES NOTED WITH BRUISING.ABDOMEN DISTENDED,SOFT TO TOUCH,+ BS.3 WAY F/C WITH TAMIR URINE DRAINAGE WITH SEDIMENTS.BILATERAL LOWER EXTREMITIES WITH 2 + PITTING EDEMA.TOTAL CARE.
--- NOTE | 2020-04-10 03:55 | NUR ---
@ 2150 H/H 9.06/17. NO NEED FOR BLD TRANSFUSION @ THIS TIME.
--- NOTE | 2020-04-10 03:57 | NUR ---
@ 2230 HAD LOOSE MODERATE STOOL,BLACKISH IN COLOR.CLEANED WITH BARREL POLISHER.DECUBITUS ULCER TO COCCYX; OPTIFOAM DRESSING CHANGED.REPOSITIONED.
--- NOTE | 2020-04-10 04:01 | NUR ---
@ 0000 RESTING COMFORTABLY IN NO ACUTE DISTRESS.
--- NOTE | 2020-04-10 04:02 | NUR ---
@0200 RESTING COMFORTABLY IN NO ACUTE DISTRESS.IVF INFUSING WELL.
--- NOTE | 2020-04-10 04:03 | NUR ---
@ 0400 REEPOSITIONED WITH SCIENTIFIC DIRECTOR.IVF INFUSING WELL.
[2020-04-10 05:41] VITALS: BP 99/42
--- NOTE | 2020-04-10 06:52 | NUR ---
ENDORSED IN NO ACUTE DISTRESS.IVF INFUSING WELL.SAFETY MAINTAINED.REPOSITIONED WITH ARMOURED CAR ESCORT.
[2020-04-10 06:58] LABS: BASOPHIL % 1.1 % (0-2); PLATELET COUNT 174 x10^3mcL (130-400)
--- NOTE | 2020-04-10 07:11 | NUR ---
RECEIVED PT FROM TILE SHADER NURSE. PT RESTING IN BED, AWAKE/ALERT, RESP E/U ON RA. NO ACUTE DISTRESS NOTED AT THIS TIME. ON TELE 17 SHOWING SR, HR: 86. RIJ CENTRAL LINE PATENT/INTACT, CDI. BED IN LOWEST POSITION AND CALL LIGHT WITHIN REACH. WILL CONTINUE TO MONITOR.
[2020-04-10 07:22] LABS: RED CELL DISTRIBUTION WIDTH 22.1 % (11.5-14.5)
[2020-04-10 08:24] VITALS: BP 110/60
[2020-04-10 12:04] VITALS: BP 119/64
--- NOTE | 2020-04-10 13:17 | NUR ---
WOUND CARE DONE. ULCER TO SACRAL-COCCYX CLEANSED W/ NS. PACKED W/ MOIST GUAZE, OPTIFOAM APPLIED, PT TOLERATED WELL. WILL CONTINUE TO MONITOR.
[2020-04-10 15:53] VITALS: BP 111/59
--- NOTE | 2020-04-10 16:38 | NUR ---
Follow-up Nutrition Assessment: 256A MARCY DÍAZ 70F HR Dx: non Q acute [place], UTI PMHx: HTN, hyperlipidemia, depression, neuropathy, anxiety, migraines, GERD Labs: (04/10) WBC 14.1H, H/H 9.5/29L, (04/09) Cr 2.1H, BG 128H, Lactic acid 2.2H, Alk ph 1412H, Albumin 1.7L (04/04) A1C 4.3L, CRP 5.5H Meds: Colace, Levophed, Merrem, Pro-amatine, Sodium chloride Diet: Clear liquid diet PO Intake: 10-70% x 3 meals with average PO intake of 30% Weights: (04/07) 83.2kg/183lbs Edema: 2+ pitting edema to BLE Last BM: 04/10 Skin: pressure ulcer noted to sacral area per skin assessment (04/06) Eric: [address] (04/07): Pt was seen isolated, lying in bed during visit. Per pt's primary RN, pt was confused, and pt was NPO for surgery, but did not complain about being hungry. Additionally, RN reported pt had diarrhea. RD Note (04/10): Pt was on Clear liquid diet since 04/07. Pt was seen lying in bed, appeared to be emotional. Per pt's RN, pt was tolerating diet and had more than 50% of her food today. Additionally, pt had a BM today. Per clinic charge nurse, pt might not be tolerating diet before and that's why she remained on clear liquid diet. However, pt was tolerating diet today, and pt is likely going to be d/c back to [facility] today. Estimated Nutritional Needs Based on adjusted body weight (67kg) Energy: 5329-1818 kcal/day (30-35 kcal/kg for septic shock and wound healing) Protein: 100-134 g/day (1.5-2 g/kg for septic shock and wound healing) Fluid: 2223-2367 mL/day (1 mL/kcal) Nutrition Diagnosis: (ongoing) 1. Increased energy and protein needs r/t critical illness and wound healing a/e/b pt has septic shock and pressure ulcer noted to sacral area per skin assessment on 04/06. (ongoing) 2. Predicted poor PO intake r/t altered mental status a/e/b RN reported pt being confused and not hungry despite being NPO for surgery. Intervention 1. Recommend cardiac diet if appropriate to advance pt's diet 2. Recommend Markie BID for wound healing Monitor/Evaluate Goal: Pt meets 75% of estimated needs Monitor: Diet implementation, Labs, GI function, Body weight, Skin integrity F/U in 2-3 days as high risk 04/09-
--- NOTE | 2020-04-10 16:38 | NUR ---
1. Recommend cardiac diet if appropriate to advance pt's diet 2. Recommend Markie BID for wound healing
--- NOTE | 2020-04-10 16:51 | NUR ---
PT REPORT GIVEN TO FAVIAN TEJEDA FROM [facility].
--- NOTE | 2020-04-10 17:30 | NUR ---
PT DISCHARGED. PT AOX1, CONFUSED AT THIS TIME. CALLED PT SON ISSA ANDERSON FOR TELEPHONE AUTHORIZATION OF TRANSFER, VERIFIED W/ EN ANKITA. TELE 17 RETURNED TO ROLLER. RIJ CENTRAL LINE PATENT/INTACT, DRESSING CDI, HEP LOCKED. PIERCE SECURED/INTACT DRAINING TAMIR URINE TO GRAVITY. PT ESCORTED OUT BY [facility] STAFF TO BE TRANSFERED TO [facility].
[2020-04-10] MEDS ORDERED: MER500I IV (22:22)
[2020-04-10] MEDS ORDERED: MEROPENEM1 GM IV ×2 (22:27→22:34)
== END 2020-04-10 17:30 | DRG 853 ==
LOC: ED 16:31 → DU 18:53 → IC 18:53 → DU 04-09 15:58
PROVIDERS: Emergency Medicine; Family Medicine; Internal Medicine; Urology; ADMIT Internal Medicine; ATTEND Internal Medicine
PROC: 02HV33Z Insertion of Infusion Device into Superior Vena Cava, Percutaneous Approach (ICD-10-PCS; 2020-04-05)
PROC: 30233N1 Transfusion of Nonautologous Red Blood Cells into Peripheral Vein, Percutaneous Approach (ICD-10-PCS; 2020-04-05)
PROC: B548ZZA Ultrasonography of Superior Vena Cava, Guidance (ICD-10-PCS; 2020-04-05)
PROC: 0T5B8ZZ Destruction of Bladder, Via Natural or Artificial Opening Endoscopic (ICD-10-PCS; 2020-04-07)
PROC: 0TCB8ZZ Extirpation of Matter from Bladder, Via Natural or Artificial Opening Endoscopic (ICD-10-PCS; 2020-04-07)
PROC: 0TBB8ZZ Excision of Bladder, Via Natural or Artificial Opening Endoscopic (ICD-10-PCS; principal; 2020-04-07 13:00)
DX: A41.9 Sepsis, unspecified organism (principal); R65.21 Severe sepsis with septic shock; N17.0 Acute kidney failure with tubular necrosis; I21.A1 Myocardial infarction type 2; G93.41 Metabolic encephalopathy; E43 Unspecified severe protein-calorie malnutrition; N39.0 Urinary tract infection, site not specified; N18.4 Chronic kidney disease, stage 4 (severe); I42.9 Cardiomyopathy, unspecified; I47.2 Ventricular tachycardia; D62 Acute posthemorrhagic anemia; E87.1 Hypo-osmolality and hyponatremia; M19.90 Unspecified osteoarthritis, unspecified site; E03.9 Hypothyroidism, unspecified; R74.0 Nonspecific elevation of levels of transaminase and lactic acid dehydrogenase [LDH]; F31.9 Bipolar disorder, unspecified; F41.9 Anxiety disorder, unspecified; I12.9 Hypertensive chronic kidney disease with stage 1 through stage 4 chronic kidney disease, or unspecified chronic kidney disease; E78.5 Hyperlipidemia, unspecified; G62.9 Polyneuropathy, unspecified; G43.909 Migraine, unspecified, not intractable, without status migrainosus; K21.9 Gastro-esophageal reflux disease without esophagitis; E87.6 Hypokalemia; B96.1 Klebsiella pneumoniae [K. pneumoniae] as the cause of diseases classified elsewhere; B96.4 Proteus (mirabilis) (morganii) as the cause of diseases classified elsewhere; I35.0 Nonrheumatic aortic (valve) stenosis; R31.0 Gross hematuria; Z20.828 Contact with and (suspected) exposure to other viral communicable diseases; Z88.6 Allergy status to analgesic agent; Z88.5 Allergy status to narcotic agent; Z88.8 Allergy status to other drugs, medicaments and biological substances; Z91.018 Allergy to other foods; Z90.49 Acquired absence of other specified parts of digestive tract; Z79.899 Other long term (current) drug therapy; Z90.711 Acquired absence of uterus with remaining cervical stump; Z68.31 Body mass index [BMI] 31.0-31.9, adult
CPT/HCPCS: 82962; 83880; 87804; G0378; G0480; J0456; J0696; J1170; J1642; J2060; J2185; J2370; J2543; J3010; J3475; J3480; J3490; J7030; J7050; J7060; P9016; Q0092; Q0163; U0003-CS